=== PATIENT | male | born 1990 | race Caucasian/White ===

== ENCOUNTER 2017-01-22 01:04 | Emergency (ER) | payer MEDICAID ==
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
== END 2017-01-22 01:35 | disposition home or self-care (01) ==
LOC: ER 01:04
PROC: 0HQ6XZZ Repair Back Skin, External Approach (ICD-10-PCS; principal; 2017-01-22)
PROC: 0HQBXZZ Repair Right Upper Arm Skin, External Approach (ICD-10-PCS; principal; 2017-01-22)
DX: S21.211A Laceration without foreign body of right back wall of thorax without penetration into thoracic cavity, initial encounter (principal); S41.111A Laceration without foreign body of right upper arm, initial encounter; F17.210 Nicotine dependence, cigarettes, uncomplicated; Z23 Encounter for immunization; Y04.8XXA Assault by other bodily force, initial encounter